=== PATIENT | male | born 1945 | race Caucasian/White ===

== ENCOUNTER → 2020-07-21 | Outpatient (CLI) | payer MEDICARE, OTHER | LOC: COL.RAD 09:08 | DX: H92.02 Otalgia, left ear (principal) | CPT/HCPCS: A9503 ==

== ENCOUNTER → 2020-08-19 | Outpatient (CLI) | payer MEDICARE, OTHER | LOC: ZCOL.LAB 13:02 | DX: H60.20 Malignant otitis externa, unspecified ear (principal) ==